=== PATIENT | female | born 1970 | race Caucasian/White ===

== ENCOUNTER 2022-02-17 15:59 | Emergency (ER) | payer OTHER, MEDICAID ==
[~2022-02-17] VITALS: Ht 160 cm; Wt 70.8 kg
[2022-02-17 16:16] VITALS: BP 116/90
--- NOTE | 2022-02-17 17:56 | NUR ---
PATIENT LEFT WITHOUT BEING SEEN BY DR. BENEDICT. NO FURTHER CARE PROVIDED FOR PATIENT.
== END 2022-02-17 17:56 | disposition left against medical advice (07) ==
LOC: MED 15:59
DX: M54.32 Sciatica, left side (principal); Z53.21 Procedure and treatment not carried out due to patient leaving prior to being seen by health care provider